=== PATIENT | male | born 1980 | race Caucasian/White ===

== ENCOUNTER 2021-11-29 17:29 | Emergency (ER) | payer OTHER ==
[~2021-11-29 17:29] MED LIST: AMOXICILLIN500 MG PO; BIAXIN500 MG PO; PROTONIX 40MG T40 MG PO
[2021-11-29 20:48] LABS: BASOPHIL 0.3 % (0-2); EOSINOPHIL 2.1 % (0-5); HCT 43.3 % (42.0-52.0); HGB 14.4 g/dl (13.2-18.0); LYMPHOCYTE 26.3 % (15-48); MCH 28.9 pg (25.0-31.0); MCHC 33.3 g/dL (32.0-36.0); MCV 86.8 fL (78.0-100.0); MONOCYTE 10.8 % (0-12); MPV 10.2 fL (6.0-9.5); NEUTROPHIL 60.2 % (41-80); NRBC 0; PLT 309 K/uL (150-400); RBC 4.99 M/uL (4.70-6.00); RDW 12.4 % (11.5-14.0); WBC 11.7 K/uL (4.0-10.5)
[2021-11-29 22:20] LABS: BUN/CREAT RATIO (CALC) 8.4 RATIO; CREATININE 1.31 mg/dL (0.67-1.17); POTASSIUM 3.7 mmol/L (3.5-5.1)
[2021-11-29] MEDS ORDERED: MEDROL 4MG DOSEP4 MG PO (22:27)
[2021-11-29] MEDS ORDERED: CYCLOBENZAPRINE10 MG PO (22:27)
== END 2021-11-29 22:45 | disposition home or self-care (01) ==
LOC: FER 17:29
PROVIDERS: Emergency Medicine Emergency Medical Services; Physician Assistant
DX: K62.5 Hemorrhage of anus and rectum (principal); S13.9XXA Sprain of joints and ligaments of unspecified parts of neck, initial encounter; S33.5XXA Sprain of ligaments of lumbar spine, initial encounter; W00.0XXA Fall on same level due to ice and snow, initial encounter
CPT/HCPCS: 36415; 72125; 72131; 80048; 85025; J7512

== ENCOUNTER → 2021-12-23 | Day surgery (SDC) | payer OTHER ==
[~2021-12-23] VITALS: Ht 172.7 cm; Wt 92.6 kg
[~2021-12-23] MED LIST changes: +ADDERALL 5 MG TA5 MG PO; +CYCLOBENZAPRINE10 MG PO; +EXCEDRIN MIGRA1 EACH PO; +MEDROL 4MG DOSEP4 MG PO; +ZOLOFT50 MG PO
[2021-12-23 09:57] LABS: HCT 44.2 % (42.0-52.0); HGB 15.1 g/dl (13.2-18.0); MCH 28.9 pg (25.0-31.0); MCHC 34.2 g/dL (32.0-36.0); MCV 84.5 fL (78.0-100.0); MPV 10.2 fL (6.0-9.5); RBC 5.23 M/uL (4.70-6.00); RDW 12.6 % (11.5-14.0)
[2021-12-23 10:03] LABS: PROTHROMBIN TIME 12.6 SECONDS (11.8-13.4)
[2021-12-23 10:32] LABS: ALBUMIN 4.1 g/dL (3.4-5.0); BILIRUBIN - TOTAL 0.5 mg/dL (0.2-1.0); CREATININE 1.16 mg/dL (0.67-1.17); GLOBULIN (CALCULATION) 3.8 g/dL; POTASSIUM 3.6 mmol/L (3.5-5.1); TOTAL PROTEIN 7.9 g/dL (6.4-8.2)
== END | disposition home or self-care (01) ==
LOC: FAS 09:18
PROVIDERS: Surgery
DX: K62.5 Hemorrhage of anus and rectum (principal); K58.9 Irritable bowel syndrome, unspecified; Z80.0 Family history of malignant neoplasm of digestive organs
CPT/HCPCS: 36415; 80053; 85610; J1610; J2704; J7120

== ENCOUNTER 2022-04-17 07:11 | Emergency (ER) | payer OTHER ==
[2022-04-17 07:49] LABS: BASOPHIL 0.4 % (0-2); EOSINOPHIL 3.7 % (0-5); HCT 46.6 % (42.0-52.0); HGB 15.2 g/dl (13.2-18.0); LYMPHOCYTE 34.5 % (15-48); MCH 28.6 pg (25.0-31.0); MCHC 32.6 g/dL (32.0-36.0); MCV 87.8 fL (78.0-100.0); MONOCYTE 10.4 % (0-12); MPV 10.5 fL (6.0-9.5); NEUTROPHIL 50.7 % (41-80); NRBC 0; PLT 307 K/uL (150-400); RBC 5.31 M/uL (4.70-6.00); RDW 12.6 % (11.5-14.0); WBC 9.4 K/uL (4.0-10.5)
[2022-04-17 07:56] LABS: ALBUMIN 3.8 g/dL (3.4-5.0); BILIRUBIN - TOTAL 0.1 mg/dL (0.2-1.0); BUN/CREAT RATIO (CALC) 10.5 RATIO; CREATININE 1.33 mg/dL (0.67-1.17); GLOBULIN (CALCULATION) 4.1 g/dL; POTASSIUM 3.9 mmol/L (3.5-5.1); TOTAL PROTEIN 7.9 g/dL (6.4-8.2)
[2022-04-17] MEDS ORDERED: DICLOFENAC SODI75 MG PO (10:13)
== END 2022-04-17 10:30 | disposition home or self-care (01) ==
LOC: FER 07:11
PROVIDERS: Emergency Medicine
DX: R07.89 Other chest pain (principal); N28.9 Disorder of kidney and ureter, unspecified; F17.200 Nicotine dependence, unspecified, uncomplicated
CPT/HCPCS: 36415; 71045; 80053; 84484; 85025; 93005; J1885; J7030